=== PATIENT | female | born 1960 | race African-American/Black ===

== ENCOUNTER 2019-08-12 08:41 | Emergency (ER) | payer MEDICARE ==
[2019-08-12] MEDS ORDERED: Ibuprofen 800 MG TAB ONE (08:57)
== END 2019-08-12 09:49 | disposition home or self-care (01) ==
LOC: MADERS 08:41
DX: J11.1 Influenza due to unidentified influenza virus with other respiratory manifestations (principal); I10 Essential (primary) hypertension; E03.9 Hypothyroidism, unspecified; E78.5 Hyperlipidemia, unspecified; Z79.899 Other long term (current) drug therapy
CPT/HCPCS: 99283